=== PATIENT | female | born 1980 | race Caucasian/White ===

== ENCOUNTER 2017-07-17 05:30 | Inpatient (IN) | payer OTHER ==
[2017-07-17 06:53] LABS: ADD UMIC NO; UR ASCORBIC ACID NEGATIVE (NEGATIVE); UR BILIRUBIN (Dip) NEGATIVE (NEGATIVE); UR BLOOD (Dip) NEGATIVE (NEGATIVE); UR CLARITY CLEAR (CLEAR); UR COLOR YELLOW (YELLOW); UR GLUCOSE (Dip) NEGATIVE (NEGATIVE); UR KETONES (Dip) TRACE mg/dL (NEGATIVE); UR LEUKOCYTE ESTERASE (Dip) NEGATIVE Leu/ul (NEGATIVE); UR NITRITE (Dip) NEGATIVE (NEGATIVE); UR SPECIFIC GRAVITY (Dip) 1.012 (1.003-1.030); UR TOTAL PROTEIN (Dip) NEGATIVE (NEGATIVE); UR UROBILINOGEN (Dip) NEGATIVE (NEGATIVE)
[2017-07-17 07:27] LABS: RUPTURE FETAL MEMBRANES NEGATIVE (NEGATIVE)
[2017-07-17] MEDS ORDERED: MISOPROSTOL 200 MCG TAB PR (07:30)
[2017-07-17] MEDS ORDERED: AMPICILLIN 2 GM/NS (PMX) 100 ML IV (07:30)
[2017-07-17] MEDS ORDERED: CARBOPROST 250 MCG INJ IM (07:30)
[2017-07-17] MEDS ORDERED: OXYTOCIN 30 UNITS/LR 500 ML IV (07:30)
[2017-07-17] MEDS ORDERED: LIDOCAINE 1% (MPF) 30 ML INJ INJ (07:30)
[2017-07-17] MEDS ORDERED: BUTORPHANOL 2 MG INJ IV (07:30)
[2017-07-17] MEDS ORDERED: IBUPROFEN 600 MG TAB PO (07:30)
[2017-07-17] MEDS ORDERED: MINERAL OIL LIGHT 10 ML VIAL TOP (07:30)
[2017-07-17] MEDS ORDERED: METHYLERGONOVINE 0.2 MG INJ IM (07:30)
[2017-07-17 08:14] LABS: ADD MAN DIFF? NO
[2017-07-17 08:15] LABS: WHITE BLOOD COUNT 7.7 10^3/ul (4.8-10.8)
[2017-07-17 08:16] LABS: BASOPHILS % 0.3 % (0.0-2.0); EOSINOPHILS # 0.1 10^3/ul (0.0-0.5); EOSINOPHILS % 1.8 % (0.0-7.0); HEMATOCRIT 35.8 % (37.0-47.0); HEMOGLOBIN 13.9 g/dl (12.0-16.0); LYMPHOCYTES # 1.7 10^3/ul (0.8-2.9); LYMPHOCYTES % 22.4 % (15.0-51.0); MEAN CORPUSCULAR HEMOGLOBIN 33.9 pg (29.0-33.0); MEAN CORPUSCULAR VOLUME 87.3 fl (82.0-101.0); MEAN PLATELET VOLUME 11.7 fl (7.4-10.4); MONOCYTE # 0.4 10^3/ul (0.3-0.9); MONOCYTES % 5.7 % (0.0-11.0); NEUTROPHIL # 5.3 10^3/ul (1.6-7.5); NEUTROPHILS % 69.3 % (39.0-77.0); PLATELET COUNT 194 10^3/UL (140-415); RED CELL DISTRIBUTION WIDTH 13.1 % (11.5-14.5)
[2017-07-17] MEDS: LACTATED RINGER'S 1,000 ML IV ×3 (08:25→22:31)
[2017-07-17 08:36] LABS: INR 0.89; PARTIAL THROMBOPLASTIN TIME 28.4 Sec (25.0-35.0); PROTIME 12.1 Sec (11.9-14.9); PT RATIO 0.9
[2017-07-17 08:38] LABS: MEAN CORPUSCULAR HGB CONC 38.8 g/dl (32.0-37.0); POSITIVE DIFF @See below
[2017-07-17] MEDS: OXYTOCIN 30 UNITS/LR 500 ML IV (11:23)
[2017-07-17] MEDS ORDERED: AMPICILLIN 1 GM/NS (PMX) 50 ML IV (11:30)
[2017-07-17 12:56] LABS: HEPATITIS B SURFACE ANTIGEN NEGATIVE (NEGATIVE)
[2017-07-17] MEDS: DINOPROSTONE 10 MG VAG SUPP VAG (18:40)
[2017-07-17 22:07] LABS: RAPID PLASMA REAGIN NONREACTIVE (NR)
[2017-07-18] MEDS: LACTATED RINGER'S 1,000 ML IV ×2 (03:58→06:00)
[2017-07-18] MEDS ORDERED: FENTAnyl 2MCG/ML-ROPIV 0.2% 100 ML (04:07)
[2017-07-18] MEDS ORDERED: DIPHENHYDRAMINE 50 MG INJ IV (04:30)
[2017-07-18] MEDS ORDERED: ONDANSETRON 4 MG INJ IV (04:30)
[2017-07-18] MEDS ORDERED: NALOXONE (0.4 MG/ML) INJ IV (04:30)
[2017-07-18] MEDS: FENTAnyl 2MCG/ML-ROPIV 0.2% 100 ML BAG EPI (06:00)
[2017-07-18] MEDS: OXYTOCIN 30 UNITS/LR 500 ML IV ×2 (09:24→09:39)
[2017-07-18] MEDS ORDERED: ZOLPIDEM 5 MG TAB PO (12:30)
[2017-07-18] MEDS ORDERED: METHYLERGONOVINE 0.2 MG INJ IM (12:30)
[2017-07-18] MEDS ORDERED: CARBOPROST 250 MCG INJ IM (12:30)
[2017-07-18] MEDS ORDERED: OXYTOCIN 30 UNITS/LR 500 ML IV (12:30)
[2017-07-18] MEDS ORDERED: MISOPROSTOL 200 MCG TAB PR (12:30)
[2017-07-18] MEDS ORDERED: HYDROCODONE/APAP (5/325) TAB PO ×2 (12:30)
[2017-07-18] MEDS: IBUPROFEN 600 MG TAB PO ×2 (14:02→18:32)
[2017-07-18] MEDS: CEPHALEXIN 500 MG CAP PO ×2 (14:02→18:32)
[2017-07-18] MEDS: LACTATED RINGER'S 1,000 ML IV* ×2 (14:03→20:16)
[2017-07-18] MEDS: DIBUCAINE 1% 30 GM OINT TOP (14:04)
[2017-07-18] MEDS: LANOLIN 7 GM TUBE TOP (14:04)
[2017-07-18] MEDS: BENZOCAINE 20% 56 ML SPRAY TOP (14:04)
[2017-07-18] MEDS: WITCH HAZEL/GLYCERIN PAD PR (14:05)
[2017-07-18] MEDS: SENNA/DOCUSATE NA (8.6MG/50MG) TAB PO (23:10)
[2017-07-18] MEDS: MAGNESIUM HYDROXIDE 30ML CUP PO (23:10)
[2017-07-19] MEDS: IBUPROFEN 600 MG TAB PO ×4 (00:52→18:15)
[2017-07-19] MEDS: CEPHALEXIN 500 MG CAP PO ×5 (00:52→18:15)
[2017-07-19] MEDS: LACTATED RINGER'S 1,000 ML IV* ×3 (04:16→20:16)
[2017-07-19 08:24] LABS: ADD MAN DIFF? NO
[2017-07-19 08:28] LABS: WHITE BLOOD COUNT 9.7 10^3/ul (4.8-10.8)
[2017-07-19 08:28] LABS: BASOPHILS % 0.4 % (0.0-2.0); EOSINOPHILS # 0.2 10^3/ul (0.0-0.5); EOSINOPHILS % 1.9 % (0.0-7.0); HEMATOCRIT 32.9 % (37.0-47.0); HEMOGLOBIN 11.4 g/dl (12.0-16.0); LYMPHOCYTES % 20.4 % (15.0-51.0); MEAN CORPUSCULAR HEMOGLOBIN 30.7 pg (29.0-33.0); MEAN CORPUSCULAR HGB CONC 34.7 g/dl (32.0-37.0); MEAN CORPUSCULAR VOLUME 88.7 fl (82.0-101.0); MEAN PLATELET VOLUME 11.7 fl (7.4-10.4); MONOCYTE # 0.5 10^3/ul (0.3-0.9); MONOCYTES % 5.6 % (0.0-11.0); NEUTROPHIL # 6.9 10^3/ul (1.6-7.5); NEUTROPHILS % 71.2 % (39.0-77.0); PLATELET COUNT 169 10^3/UL (140-415); RED BLOOD COUNT 3.71 10^6/ul (4.20-5.40); RED CELL DISTRIBUTION WIDTH 13.3 % (11.5-14.5)
[2017-07-19] MEDS: SENNA/DOCUSATE NA (8.6MG/50MG) TAB PO ×2 (10:21→22:33)
[2017-07-19] MEDS: MAGNESIUM HYDROXIDE 30ML CUP PO ×2 (10:21→22:33)
[2017-07-19] MEDS: INFLUENZA VIRUS VACCINE 0.5 ML SYG IM* (12:55)
[2017-07-20] MEDS: CEPHALEXIN 500 MG CAP PO ×3 (00:50→12:07)
[2017-07-20] MEDS: IBUPROFEN 600 MG TAB PO ×3 (00:50→12:07)
[2017-07-20] MEDS: LACTATED RINGER'S 1,000 ML IV* (04:16)
[2017-07-20] MEDS: SENNA/DOCUSATE NA (8.6MG/50MG) TAB PO (09:55)
[2017-07-20] MEDS: MAGNESIUM HYDROXIDE 30ML CUP PO (09:55)
[2017-07-20] MEDS: VARICELLA VACCINE LIVE/PF 1,350 UNIT/0.5 ML ML SC* (09:57)
[2017-07-20] MEDS: MEASLES,MUMPS,RUBELLA VACCINE INJ SC* (09:58)
[2017-07-20] MEDS: DIPHTH/TET/ACEL PERTUSS (ADULT) 0.5 ML VIAL IM* (09:59)
== END 2017-07-20 14:40 | disposition home or self-care (01) | DRG 775 ==
LOC: OBT 05:30 → PP1 07-18 11:22 → L-D 05:32 → OBT 07:25 → L-D 07:15
PROVIDERS: Obstetrics & Gynecology
PROC: 3E0P7VZ Introduction of Hormone into Female Reproductive, Via Natural or Artificial Opening (ICD-10-PCS; 2017-07-17)
PROC: 10E0XZZ Delivery of Products of Conception, External Approach (ICD-10-PCS; principal; 2017-07-18)
DX: O41.03X0 Oligohydramnios, third trimester, not applicable or unspecified (principal); Z37.0 Single live birth; Z3A.38 38 weeks gestation of pregnancy
CPT/HCPCS: 36415; 62319; 76818; 81003; 84112; 85025; 85610; 85730; 86592; 86900; 86901; 87086; 87340; 90686; 90715; 90716